=== PATIENT | male | born 1975 | race Hispanic/Latino ===

== ENCOUNTER → 2025-05-12 | Outpatient (CLI) | payer BC ==
--- NOTE | 2025-05-13 07:48 | HMCIMG ---
EXAM: MR Right shoulder without contrast. CLINICAL HISTORY: Bicipital tendinitis. TECHNIQUE: Multisequence, multiplanar magnetic resonance images of the right shoulder without intravenous contrast. CONTRAST: None. COMPARISON: None provided. FINDINGS: Moderate degenerative changes noted in the acromioclavicular joint. Normal supraspinatus canal. Partial articular side tear of the supraspinatus tendon. The subscapularis, infraspinatus, and teres minor tendons are intact. No definitive subacromial/subdeltoid bursitis. Unremarkable glenohumeral joint. The glenoid cartilaginous and bony labrum are grossly intact, no labral tear on non-arthrogram evaluation. Trace fluid in the glenohumeral joint is likely physiologic. Moderate intra-articular tendinosis of the long head of the biceps. Bone marrow signal is fairly homogeneous; no fracture or AVN. Intact intrinsic ligaments. The deltoid and the other surrounding muscles are unremarkable. No soft tissue masses. IMPRESSION: Moderate intra-articular tendinosis of the long head of the biceps. Partial articular side tear of the supraspinatus tendon. /[place]
== END | disposition home or self-care (01) ==
LOC: RAH 07:47
PROVIDERS: ATTEND Student in an Organized Health Care Education/Training Program
DX: M67.813 Other specified disorders of tendon, right shoulder (principal); M75.21 Bicipital tendinitis, right shoulder; M19.011 Primary osteoarthritis, right shoulder; M77.8 Other enthesopathies, not elsewhere classified
CPT/HCPCS: 73221